=== PATIENT | male | born 1985 | race Caucasian/White ===

== ENCOUNTER → 2019-11-07 10:11 | Outpatient (BNVA) | payer OTHER, SELFPAY | PROVIDERS: Family Provider Family Medicine; PCP Family Medicine; Visit Provider Family Medicine | DX: Z01.89 Encounter for other specified special examinations (principal) | CPT/HCPCS: 80307 ==

== ENCOUNTER → 2019-12-06 09:41 | Outpatient (BNVA) | payer OTHER, SELFPAY | PROVIDERS: Family Provider Family Medicine; PCP Family Medicine; Visit Provider Family Medicine | DX: R03.0 Elevated blood-pressure reading, without diagnosis of hypertension (principal); F41.1 Generalized anxiety disorder; M79.605 Pain in left leg; E11.9 Type 2 diabetes mellitus without complications; G89.29 Other chronic pain | CPT/HCPCS: 85025 ==

== ENCOUNTER → 2020-03-04 09:40 | Outpatient (BNVA) | payer OTHER, SELFPAY | PROVIDERS: Family Provider Family Medicine; PCP Family Medicine; Visit Provider Family Medicine | DX: Z79.891 Long term (current) use of opiate analgesic (principal); M79.605 Pain in left leg; G89.29 Other chronic pain; R03.0 Elevated blood-pressure reading, without diagnosis of hypertension; E11.9 Type 2 diabetes mellitus without complications; F41.1 Generalized anxiety disorder | CPT/HCPCS: 80053; 80061; 80307; 82044; 85025 ==

== ENCOUNTER → 2020-10-29 09:49 | Outpatient (BNVA) | payer OTHER, SELFPAY | PROVIDERS: Family Provider Family Medicine; PCP Family Medicine; Visit Provider Family Medicine | DX: Z79.891 Long term (current) use of opiate analgesic (principal); I10 Essential (primary) hypertension; M79.605 Pain in left leg; G89.29 Other chronic pain | CPT/HCPCS: 80307 ==

== ENCOUNTER 2021-10-26 21:03 | Emergency (ER) | payer OTHER, SELFPAY ==
--- NOTE | 2021-10-26 21:08 | XRR_ITS ---
PROCEDURE INFORMATION: Exam: XR Chest Exam date and time: 10/26/2021 9:08 PM Age: 36 years old Clinical indication: Cough TECHNIQUE: Imaging protocol: XR of the chest. Views: 1 view. COMPARISON: No relevant prior studies available. FINDINGS: Lungs: Unremarkable. No consolidation. Pleural spaces: Unremarkable. No pleural effusion. No pneumothorax. Heart/Mediastinum: Unremarkable. No cardiomegaly. Bones/joints: Unremarkable. XR/XR chest 1V portable [id number] IMPRESSION: No acute findings.
[2021-10-26 21:30] VITALS: BP 164/103; PULSE 102; RESP 20; TEMP 37.9; O2SAT 95; BMI 37.6
--- NOTE | 2021-10-26 23:54 | XRR_ITS ---
PROCEDURE INFORMATION: Exam: XR Soft Tissue Neck Exam date and time: 10/26/2021 11:54 PM Age: 36 years old Clinical indication: Dysphagia / difficulty swallowing; Painful swallowing; Additional info: Trouble swallowing TECHNIQUE: Imaging protocol: XR of the soft tissues of the neck. COMPARISON: CR XR chest 1V portable [id number] 2021-10-27 00:24 FINDINGS: Airway: Normal. No abnormal narrowing. Soft tissues: Normal. Normal epiglottis. Bones/joints: Unremarkable. XR/XR soft tissue neck [id number] IMPRESSION: No acute findings.
[2021-10-27 00:05] VITALS: O2SAT 98
--- NOTE | 2021-10-27 00:11 | W.ED.COVID ---
HPI - COVID General: Chief Complaint: COVID symptoms Stated Complaint: covid symtoms Time Seen by Provider: 10/26/21 23:18 Source: patient Mode of arrival: ambulatory Limitations: no limitations Triage information: Has fever, cough or shortness of breath. Exposure to COVID + person last 14 days History of Present Illness: 36-year-old male states has been having fever cough chills over the last 4 to 5 days. He states he also had painful difficulty swallowing with nausea. was recently diagnosed with Covid he has been in close contact with her and believes he likely has Covid he is in no distress here denies any worsening improving factors. COVID 19 common symptoms: positive fever(s), chills, body aches and throat pain; negative dyspnea, headache(s), nausea, vomiting or diarrhea COVID 19 other sytmptoms: negative chest pain COVID Results: SARS-CoV-2 RNA (RT-PCR) Pending 10/26/21 21:35 10/26/21 Review of Systems Const: Reports: fever(s), chills and body aches Eyes: Denies: blurry vision or eye discomfort ENMT: Reports: throat pain and odynophagia Card: Denies: chest pain Resp: Denies: dyspnea GI: Denies: abdominal pain, nausea, vomiting or diarrhea : Denies: dysuria Musc: Denies: neck pain or back pain Skin/Breast: Denies: rash Neuro: Denies: headache(s) Psych: Denies: depression [place]/Lymph: Denies: easy bruising All/Imm: Denies: urticaria PFSH ED PFSH: Medical History 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 Chronic pain of left lower extremity GERD (gastroesophageal reflux disease) History of left below knee amputation Surgical History History of cholecystectomy Status post below-knee amputation of left lower extremity Family History Other Diabetes Social History Smoking and tobacco status: former smoker Alcohol intake: never Physical Exam Const: COMMON NORMALS: no acute distress, patient oriented x3 and healthy appearing HENMT: COMMON NORMALS: normocephalic and atraumatic HEAD & SCALP: normocephalic and atraumatic MOUTH: Normal oral and palatal mucosa present THROAT: posterior oropharynx normal OTHER: handling secretions well Eye: COMMON NORMALS: Equal, round and reactive pupils present and EOMs intact bilaterally PUPIL: Yes Equal, round and reactive pupils present Neck/C-Spine: COMMON NORMALS: full ROM and supple Chest: COMMONS NORMALS: normal inspection of the chest and normal palpation of entire chest wall Resp: COMMON NORMALS: normal respiratory effort, No retractions, No use of accessory muscles and clear to auscultation bilaterally AUSCULTATION: clear to auscultation bilaterally Cardio: COMMON NORMALS: regular rate, regular rhythm and No murmurs present (Cardio) RATE: regular rate RHYTHM: regular rhythm GI: COMMON NORMALS: Normal to inspection, nondistended, normoactive bowel sounds present, Soft to palpation, non-tender and no masses PALPATION: Yes Soft to palpation Extremity: COMMON NORMALS: normal to inspection and full ROM Neuro: COMMON NORMALS: patient oriented x3, moves all extremities and no focal motor deficits Psych: COMMON NORMALS: mental status grossly normal, Normal thought process present and cooperative THOUGHT PROCESS: Normal thought process present Skin: COMMON NORMALS: no rashes or lesions noted and no wounds GENERAL SKIN EXAM: no rashes or lesions noted Course Vital Signs: Vital signs: Vital Signs Temperature 100.2 F H 10/26/21 21:30 Pulse Rate 81 10/27/21 03:00 Respiratory Rate 16 10/27/21 03:00 Blood Pressure 149/93 10/27/21 03:00 Pulse Oximetry 97 10/27/21 03:00 MDM - COVID Medical Decision Making Patient presents here with symptoms consistent with likely Covid or other viral syndrome recently was diagnosed with Covid has been in close contact today send out PCR. Patient's blood work here is normal also been some difficulty swallowing CT scan shows a salivary duct stone no other did abnormalities he is stable for discharge we will get him follow-up with PCP and return if worsening. Lab Data : 10/27/21 00:50 10/27/21 00:50 Radiology Impressions Chest X-Ray 10/26/21 21:08 IMPRESSION: No acute findings. Soft Tissue Neck X-Ray 10/26/21 23:54 IMPRESSION: No acute findings. Neck CT 10/27/21 01:41 IMPRESSION: 1. Right submandibular salivary duct 8 mm stone. 2. No fluid collection or masses. Laboratory Results WBC 5.6 10^3/uL (4.0-10.0) 10/27/21 00:50 Corrected WBC Cancelled 10/27/21 00:15 RBC 5.18 10^6/uL (4.1-5.3) 10/27/21 00:50 Hgb 14.9 g/dL (11.7-16.6) 10/27/21 00:50 Hct 44.8 % (42.0-52.0) 10/27/21 00:50 MCV 86.5 fl (80-94) 10/27/21 00:50 MCH 28.8 pg (28.0-34.0) 10/27/21 00:50 MCHC 33.3 g/dL (30.0-36.0) 10/27/21 00:50 RDW 13.0 % (12.1-15.1) 10/27/21 00:50 Plt Count 190 10^3/cmm (130-400) 10/27/21 00:50 MPV 11.6 fL (7.4-10.4) H 10/27/21 00:50 Gran % Cancelled 10/27/21 00:15 Neut % (Auto) 66.3 % 10/27/21 00:50 Lymph % (Auto) 23.3 % 10/27/21 00:50 [place] % (Auto) 9.5 % 10/27/21 00:50 Eos % (Auto) 0.0 % 10/27/21 00:50 Baso % (Auto) 0.5 % 10/27/21 00:50 Neut # (Auto) 3.69 10^3/uL (1.8-7.7) 10/27/21 00:50 Lymph # (Auto) 1.3 10^3/uL (0.8-4.8) 10/27/21 00:50 [place] # (Auto) 0.5 10^3/uL (0.2-0.9) 10/27/21 00:50 Eos # (Auto) 0.0 10^3/uL (0.0-0.8) 10/27/21 00:50 Baso # (Auto) 0.0 10^3/uL (0.0-0.1) 10/27/21 00:50 Absolute Gran (auto) Cancelled 10/27/21 00:15 Nucleated RBC % (auto) 0 % 10/27/21 00:50 Nucleated RBCs # 0.0 /100WBC 10/27/21 00:50 Sodium 139 mmol/L (136-145) 10/27/21 00:50 Potassium 3.7 mmol/L (3.5-5.1) 10/27/21 00:50 Chloride 105 mmol/L (98-107) 10/27/21 00:50 Carbon Dioxide 21 mmol/L (22-29) L 10/27/21 00:50 Anion Gap 16.7 (5-19) 10/27/21 00:50 BUN 9 mg/dL (6-20) 10/27/21 00:50 Creatinine 0.9 mg/dL (0.7-1.2) 10/27/21 00:50 GFR Calculation 96.0 mL/min (90-130) 10/27/21 00:50 Glucose 93 mg/dL (65-115) 10/27/21 00:50 Calculated Osmolality 286 mOsm/kg (285-295) 10/27/21 00:50 Calcium 9.1 mg/dL (8.5-10.5) 10/27/21 00:50 Total Bilirubin 0.4 mg/dL (0.15-1.2) 10/27/21 00:50 AST 32 U/L (0-40) 10/27/21 00:50 ALT 52 U/L (0-41) H 10/27/21 00:50 Alkaline Phosphatase 77 IU/L (40-130) 10/27/21 00:50 Total Protein 7.2 g/dL (6.6-8.7) 10/27/21 00:50 Albumin 4.0 g/dL (3.5-5.2) 10/27/21 00:50 Globulin 3.2 g/dL (1.3-4.6) 10/27/21 00:50 SARS-CoV-2 RNA (RT-PCR) Pending 10/26/21 21:35 10/26/[address]: I personally reviewed and interpreted this imaging study as follows: Radiologist's impression: IMPRESSION: 1. Right submandibular salivary duct 8 mm stone. 2. No fluid collection or masses. Discharge Plan Discharge Patient Disposition: Home Clinical Impression: Difficulty in swallowing, Acute viral syndrome, Salivary duct stone Condition: Stable Prescriptions: No Action pantoprazole [Protonix] 40 mg tablet,delayed release (DR/EC) 40 mg PO DAILY Qty: 90 1RF hydrocodone-acetaminophen 5-325 mg tablet 1 tab PO TID PRN (Reason: pain) 30 Days Qty: 90 0RF Rx Instructions: Do not fill until 12/26/2021 metoprolol tartrate 25 mg tablet 12.5 mg PO BID Qty: 90 0RF (DME) FULL LEG PROSTHESIS See Rx Instructions .Route .MEDSUPPLY Qty: 1 0RF Rx Instructions: As directed gabapentin 400 mg capsule 400 mg PO TID Qty: 270 0RF amlodipine [Norvasc] 10 mg tablet 10 mg PO .po q hs Qty: 90 0RF hydrochlorothiazide 25 mg tablet 25 mg PO QAM Qty: 90 0RF Discharge Orders: Discharge ED (Routine); Ordered 10/27/21 Ordered By: Filemon Castillo Referrals: Génesis Zavala DO [Primary Care Provider] - 1-3 days Discharge Diet: Advance as tolerated Discharge Activity: Resume usual activity Patient Instructions: Viral Syndrome (ED), Dysphagia (ED) Coding Level of Care Code ED 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
[2021-10-27] MEDS: dexamethasone 10 mg/mL INJ IVP (00:18)
[2021-10-27 01:07] LABS: Basophils % 0.5 %; Hematocrit 44.8 % (42.0-52.0); Hemoglobin 14.9 g/dL (11.7-16.6); Lymphocytes # 1.3 10^3/uL (0.8-4.8); Lymphocytes % 23.3 %; Mean Corpuscular HGB Conc 33.3 g/dL (30.0-36.0); Mean Corpuscular Hemoglobin 28.8 pg (28.0-34.0); Mean Corpuscular Volume 86.5 fl (80-94); Mean Platelet Volume 11.6 fL (7.4-10.4); Monocytes # 0.5 10^3/uL (0.2-0.9); Monocytes % 9.5 %; Neutrophils # 3.69 10^3/uL (1.8-7.7); Neutrophils % 66.3 %; Nucleated Red Blood Cells % 0 %; Platelet Count 190 10^3/cmm (130-400); Red Blood Count 5.18 10^6/uL (4.1-5.3); White Blood Count 5.6 10^3/uL (4.0-10.0)
[2021-10-27 01:33] LABS: Alanine Aminotransferase 52 U/L (0-41); Alkaline Phosphatase 77 IU/L (40-130); Anion Gap 16.7 (5-19); Aspartate Amino Transferase 32 U/L (0-40); Blood Urea Nitrogen 9 mg/dL (6-20); Calcium 9.1 mg/dL (8.5-10.5); Carbon Dioxide 21 mmol/L (22-29); Chloride 105 mmol/L (98-107); Globulin 3.2 g/dL (1.3-4.6); Glucose 93 mg/dL (65-115); Osmolality Calculated 286 mOsm/kg (285-295); Potassium 3.7 mmol/L (3.5-5.1); Sodium 139 mmol/L (136-145); Total Bilirubin 0.4 mg/dL (0.15-1.2); Total Protein 7.2 g/dL (6.6-8.7)
[2021-10-27 01:35] VITALS: BP 175/115; PULSE 90; RESP 18; O2SAT 97
--- NOTE | 2021-10-27 01:41 | CTR_ITS ---
PROCEDURE INFORMATION: Exam: CT Neck With Contrast Exam date and time: 10/27/2021 1:41 AM Age: 36 years old Clinical indication: Dysphagia / difficulty swallowing; Painful swallowing; Additional info: Trouble swallowing TECHNIQUE: Imaging protocol: Computed tomography images of the neck with contrast. Radiation optimization: All CT scans at this facility use at least one of these dose optimization techniques: automated exposure control; mA and/or kV adjustment per patient size (includes targeted exams where dose is matched to clinical indication); or iterative reconstruction. Contrast material: OMNI 300; Contrast volume: 95 ml; Contrast route: INTRAVENOUS (IV); COMPARISON: 1. CR XR soft tissue neck [id number] 2021-10-27 00:33 2. CR XR chest 1V portable [id number] 2021-10-27 00:24 RADIATION DOSE METRICS: Total DLP (mGy-cm): 728.6 FINDINGS: Nasopharynx: Unremarkable. Oropharynx: Unremarkable. No significant tonsillar enlargement. Hypopharynx: Unremarkable. Larynx: Unremarkable. Normal epiglottis. Retropharyngeal space: Unremarkable. Submandibular/Parotid glands: Right submandibular salivary duct 8 mm stone. Thyroid: Normal. No enlarged or calcified nodules. Lymph nodes: Unremarkable. No lymphadenopathy. Trachea: Visualized trachea is unremarkable. Lungs: Unremarkable as visualized. Bones/joints: Unremarkable. No acute fracture. Soft tissues: Unremarkable. No significant soft tissue swelling. CT/CT neck w con* [id number] IMPRESSION: 1. Right submandibular salivary duct 8 mm stone. 2. No fluid collection or masses.
[2021-10-27] MEDS: sodium chloride 0.9% 1,000 ML 999 ML IV (02:19)
[2021-10-27] MEDS: iohexol 300 mg/mL 100 mL Btl IV (02:27)
[2021-10-27 03:00] VITALS: BP 149/93; PULSE 81; RESP 16; O2SAT 97
[2021-10-27 03:18] VITALS: BP 149/93; PULSE 81; RESP 17; TEMP 37.2; O2SAT 97
[2021-10-28 20:38] LABS: Quest SARS-CoV-2 RNA DETECTED (NOT DETECTED)
--- NOTE | 2021-10-29 14:28 | PC.NURSE ---
Notified pt of (+) COVID
== END 2021-10-27 03:20 | disposition home or self-care (01) ==
PROVIDERS: Physician Assistant; Emergency Provider Emergency Medicine; PCP Family Medicine
DX: U07.1 COVID-19 (principal); R13.10 Dysphagia, unspecified; K11.5 Sialolithiasis; Z89.512 Acquired absence of left leg below knee; Z87.891 Personal history of nicotine dependence
CPT/HCPCS: 70360; 70491; 71045; 80053; 85025; 87635; 96361; 96374; 99284; J1100; J7030; Q9967

== ENCOUNTER → 2022-01-19 10:48 | Outpatient (BNVA) | payer MEDICAID, SELFPAY | PROVIDERS: PCP Family Medicine; Visit Provider Family Medicine | DX: Z79.891 Long term (current) use of opiate analgesic (principal) | CPT/HCPCS: 80307 ==

== ENCOUNTER → 2022-03-18 09:46 | Outpatient (BNVA) | payer MEDICAID, SELFPAY | PROVIDERS: PCP Family Medicine; Visit Provider Nurse Practitioner Family | DX: I96 Gangrene, not elsewhere classified (principal); L89.892 Pressure ulcer of other site, stage 2 | CPT/HCPCS: 11042; 99203; A6250 ==

== ENCOUNTER → 2022-03-25 08:45 | Outpatient (BNVA) | payer MEDICAID, SELFPAY | PROVIDERS: PCP Family Medicine; Visit Provider Thoracic Surgery (Cardiothoracic Vascular Surgery) | DX: I96 Gangrene, not elsewhere classified (principal); L89.892 Pressure ulcer of other site, stage 2 | CPT/HCPCS: 97597; A6021 ==

== ENCOUNTER → 2022-10-12 11:29 | Outpatient (BNVA) | payer MEDICAID, SELFPAY | PROVIDERS: PCP Family Medicine; Visit Provider Family Medicine | DX: I10 Essential (primary) hypertension (principal) | CPT/HCPCS: 80053; 80061; 85025 ==

== ENCOUNTER → 2025-01-30 11:22 | Outpatient (BNVA) | payer MEDICAID, SELFPAY | PROVIDERS: PCP Family Medicine; Referring Provider Family Medicine; Visit Provider Internal Medicine | DX: R79.89 Other specified abnormal findings of blood chemistry (principal); D35.2 Benign neoplasm of pituitary gland | CPT/HCPCS: 99204 ==

== ENCOUNTER 2025-01-31 07:55 | Outpatient (CLI) | payer MEDICAID, SELFPAY ==
[2025-01-31 08:32] LABS: Basophils # 0.1 10^3/uL (0.0-0.1); Basophils % 1.4 %; Eosinophils # 0.1 10^3/uL (0.0-0.8); Eosinophils % 1.5 %; Hematocrit 46.1 % (37-53); Lymphocytes # 2.4 10^3/uL (0.8-4.8); Lymphocytes % 39.8 %; Mean Corpuscular HGB Conc 33.8 g/dL (30-55); Mean Corpuscular Hemoglobin 28.4 pg (27-33); Mean Corpuscular Volume 83.8 fl (82-101); Mean Platelet Volume 11.3 fL (7.4-10.4); Monocytes # 0.4 10^3/uL (0.2-0.9); Monocytes % 7.5 %; Neutrophils # 2.93 10^3/uL (1.8-7.7); Neutrophils % 49.6 %; Nucleated Red Blood Cells % 0 %; Platelet Count 204 10^3/cmm (157-399)
[2025-01-31 08:58] LABS: Alanine Aminotransferase 26 U/L (0-41); Albumin Level 4.2 g/dL (3.5-5.2); Alkaline Phosphatase 105 U/L (40-130); Anion Gap 13.6 (5-19); Aspartate Amino Transferase 24 U/L (0-40); Blood Urea Nitrogen 10 mg/dL (6-20); Calcium 9.3 mg/dL (8.5-10.5); Carbon Dioxide 29 mmol/L (22-29); Chloride 103 mmol/L (98-107); Glomerular Filtration Rate 61.8 mL/min (90-130); Glucose 81 mg/dL (65-115); Osmolality Calculated 292 mOsm/kg (285-295); Potassium 3.6 mmol/L (3.5-5.1); Prostate Specific Antigen 0.266 ng/mL (0-4); Sodium 142 mmol/L (136-145); Testosterone Total 670.1 ng/dL (249-836); Total Bilirubin 0.9 mg/dL (0.15-1.2); Total Protein 7.2 g/dL (6.6-8.7)
[2025-01-31 09:32] LABS: Follicle Stimulating Hormone 1.7 mIU/mL (1.5-12.4); Luteinizing Hormone 4.1 mIU/mL (1.7-8.6); Prolactin 19.99 ng/mL (4.0-15.2)
[2025-01-31 14:19] LABS: PH Semen 6.5 (7.0-8.0); Volume Semen 1.5 mL (2-5)
[2025-01-31 14:20] LABS: Viscosity Semen High Viscosity
[2025-01-31 14:21] LABS: Pathology Referral Yes; Red Blood Count Semen 0-4 /hpf; Sperm Immotility 50 % (50-60); Sperm Non-Progressive Motility 25 % (5-10); Sperm Progressive Motility 25 % (31-34); Sperm Vitality-% Live Sperm 67 %; White Blood Count Semen 0-4 /hpf
[2025-02-05 13:59] LABS: Testosterone, Free 55.5 pg/mL (46.0-224.0)
== END 2025-01-31 07:56 | disposition home or self-care (01) ==
PROVIDERS: PCP Family Medicine; Visit Provider Internal Medicine
DX: R79.89 Other specified abnormal findings of blood chemistry (principal)
CPT/HCPCS: 36415; 80053; 80503; 83001; 83002; 84146; 84153; 84402; 84403; 84443; 85025; 89320